=== PATIENT | female | born 1935 | race Caucasian/White ===

== ENCOUNTER 2024-05-26 11:00 | Inpatient (IN) | payer MEDICARE ==
[2024-05-26] MEDS: IV FLUID CONTINUATION 200 ML IV ONE (12:00)
[2024-05-26] MEDS: MIDAZOLAM 2 MG/2 ML VIAL IVP ONE (12:26)
[2024-05-26] MEDS: HEPARIN SODIUM 1,000 UN/ML (10ML VL) IVP ONE (12:31)
[2024-05-26] MEDS: CLOPIDOGREL 75 MG TAB PO ONE (12:39)
[2024-05-26] MEDS: HEPARIN SODIUM,PORCINE 10,000 UNIT in SODIUM CHLORIDE 0.9% 1,000 ML IRRIGATION ONE (12:39)
[2024-05-26] MEDS: HEPARIN SODIUM,PORCINE (1 ML) 2,500 UNIT in SODIUM CHLORIDE 0.9% 250 ML IRRIGATION ONE (12:41)
[2024-05-26] MEDS: diphenhydrAMINE 50 MG/ML 1 ML VIAL IVP ONE (12:53)
[2024-05-26] MEDS: IOPAMIDOL-370 100ML BTL INJ ONE (12:57)
[2024-05-26] MEDS ORDERED: NITROGLYCERIN SL TABS 0.4 MG TAB SUBLINGUAL PRN (12:59)
[2024-05-26] MEDS ORDERED: RX INFO: IV CONTRAST WAS GIVEN 1 EACH MISC MISCELLANE PRN (12:59)
[2024-05-26] MEDS ORDERED: ZOLPIDEM 5 MG TAB PO PRN (12:59)
[2024-05-26] MEDS ORDERED: ATROPINE SULFATE 0.1 MG/ML 10ML SYRINGE IV PRN (12:59)
[2024-05-26] MEDS ORDERED: MAG HYDROX/AL HYDROX/SIMETH 30 ML CUP PO PRN (12:59)
--- NOTE | 2024-05-26 13:04 | P.PCN ---
Date of Procedure: 05/26/24 Operative Findings: PERCUTANEOUS CORONARY INTERVENTION Performing physician Eliel Rodriguez M.D. Procedure Performed: 1. Successful stenting of the mid RCA using 3.5 x 18 mm Xience drug-eluting stent with an excellent angiographic results. 2. Successful stending of the proximal RCA using 3.5 x 15 mm Xience drug-eluting stent with an excellent angiographic result. 3. Adjunctive use of IVUS Indication: Acute non-ST ovation myocardial infarction this 88-year-old female patient who underwent a heart catheterization that revealed severe disease involving the mid RCA Approach: Right radial artery Complications: None Level of Sedation: Moderate with a sedation length of 28 minutes Procedure Discussion: Please refer to diagnostic heart catheterization was performed at [facility]. The patient was brought here for an intervention on the RCA. Anticoagulation was initiated using heparin with continuous ACT monitoring. Subsequently patient was loaded with 600 Plavix at the beginning of the procedure. The RCA was engaged using JR4 guiding catheter and was wired using a whisper wire. I did intravascular ultrasound which showed calcified but not heavily calcified RCA with a diameter around 3.5 mm and predilatation was performed using 2.5 mm balloon before I deployed 3.5 x 18 mm stent in the mid RCA. An angiogram was taken after showed possible edge dissection. I decided to cover that with another stent. I did place in the proximal to mid RCA 3.5 x 15 mm another Xience SHAQUILLE where the stent again was positioned under fluoroscopy guidance and deployed under fluoroscopy guidance. Final angiogram showed excellent angiographic results with no edge dissection but edge stepdown at the distal edge of the stent in the mid RCA. The procedure was completed with no complication Postprocedure Management: 1. Dual antiplatelet therapy and adding oral anticoagulation so the patient will be on triple therapy 2. Aggressive cholesterol control 3. Risk factors modification
[2024-05-26] MEDS: SODIUM CHLORIDE 0.9% 1,000 ML IV ONE (13:11)
[2024-05-26] MEDS: IV FLUID CONTINUATION 1,000 ML IV ONE (13:12)
[2024-05-26] MEDS: ONDANSETRON 4 MG/2 ML VIAL IVP PRN (13:45)
[2024-05-26] MEDS: SODIUM CHLORIDE 0.9% 1,000 ML in EMPTY BAG 1 BAG IV SCH (13:45)
[2024-05-26] MEDS: ATORVASTATIN 80 MG TAB PO SCH (19:39)
[2024-05-26] MEDS ORDERED: ACETAMINOPHEN TAB 325 MG TAB PO PRN (22:59)
[2024-05-27 04:59] VITALS: RESP 18
[2024-05-27 08:19] LABS: African American GFR (CKD) 38 (>60 ml/min/1.73 sqM); Non-African American GFR(CKD) 33 (>60 ml/min/1.73 sqM)
[2024-05-27] MEDS: ASPIRIN 81 MG PO SCH (08:39)
[2024-05-27] MEDS: CLOPIDOGREL 75 MG TAB PO SCH (08:39)
[2024-05-27] MEDS: METOPROLOL TARTRATE 12.5 MG TAB PO SCH (09:57)
--- NOTE | 2024-05-27 12:26 | P.PN ---
Subjective Progress Note Date: 05/27/24 This is an 88-year-old female that initially presented to [facility] for acute NSTEMI. She underwent cardiac catheterization at [facility] that revealed severe disease involving the mid RCA. Patient was then transferred to [facility] and underwent successful stenting of the mid RCA and successful stenting of the proximal RCA. Patient has been started on dual antiplatelet therapy. Patient has had no complications overnight. She denies chest pain at this time. No shortness of breath. Blood pressure 133/73, heart rate 66, pulse ox 97% on 2 L nasal cannula. Creatinine 1.45. Physical examination: Gen: This is an 88-year-old female in no acute distress VS: reviewed HEENT: Head is atraumatic, normocephalic. Pupils equal, round. Sclerae is anicteric. NECK: Supple. No JVD. LUNGS: Clear to auscultation. No wheezes or rhonchi. No intercostal retractions. HEART: Regular rate and rhythm. ABDOMEN: Soft No tenderness. EXTREMITIES: No pedal edema. No calf tenderness. NEUROLOGICAL: Patient is awake, alert and oriented x3. Assessment: NSTEMI Hypertension COPD Remote history of tobacco use Plan: Continue patient on aspirin 81 mg daily and Plavix 75 mg daily Continue atorvastatin, Lopressor. Patient is cleared for discharge from cardiology perspective. Patient to follow-up with Dr. Rodriguez in 1 week. Prescriptions for new cardiac medications have been sent to patient's pharmacy. Nurse practitioner note has been reviewed, I agree with documented findings and plan of care. Patient was seen and examined. Objective - Vital Signs Vital signs: Vital Signs Temp 98.2 F 05/27/24 04:00 Pulse 71 05/27/24 04:00 Resp 18 05/27/24 04:00 BP 145/80 05/27/24 04:00 Pulse Ox 97 05/27/24 08:52 FiO2 Intake & Output 05/26/24 05/27/24 05/27/24 18:59 06:59 18:59 Intake Total 900 120 Balance 900 120 Weight 73.936 kg 74 kg Intake: IV 810 Oral 90 120 Other: Voiding Method Toilet # Voids 1 2 - Labs CBC & Chem 7: 05/27/24 07:15 Labs: Abnormal Lab Results - Last 24 Hours (Table) 05/27/24 Range/Units 07:15 Creatinine 1.45 H (0.52-1.04) mg/dL
[2024-05-27 13:07] VITALS: BP 142/75; PULSE 62; TEMP 97.6
[2024-05-27 13:19] VITALS: BMI 28.0
[2024-05-27 14:05] LABS: Influenza A Not Detected (Not Detectd); Influenza B Not Detected (Not Detectd); RSV Not Detected (Not Detectd)
--- NOTE | 2024-05-29 09:31 | P.HPIM ---
History of Present Illness H&P Date: 05/27/24 This is a pleasant 88-year-old female sent from [facility] for further cardiology evaluation for possible cardiac intervention. Patient evaluated by Dr. Rodriguez and is status post successful stenting of the mid RCA as well as proximal RCA secondary to NSTEMI that initially revealed severe disease in volving the mid RCA. Patient follows with Dr. Shady Byrd which she was not informed he retired in April, so currently has no primary care provider but does have other providers in the clinic she will see. Patient does have past medical history of COPD, hypertension, and was a former smoker. Patient reports she has as needed oxygen at home for her COPD although does not wear it all the time. Patient reports to feeling extremely well and would like to go home if possible although concerned as her daughter and son-in-law live in the home with her were just diagnosed with influenza. Influenza testing was negative for this patient including negative COVID and negative RSV. Patient denies any respiratory symptoms. Patient reports she will be going to stay with a friend for a few days. REVIEW OF SYSTEMS: CONSTITUTIONAL: No fever, no malaise, no fatigue. HEENT: No recent visual problems or hearing problems. Denied any sore throat. CARDIOVASCULAR: No further chest pain, orthopnea, PND, no palpitations, no syncope. PULMONARY: No shortness of breath, no cough, no hemoptysis. GASTROINTESTINAL: No diarrhea, no nausea, no vomiting, no abdominal pain. NEUROLOGICAL: No headaches, no weakness, no numbness. HEMATOLOGICAL: Denies any bleeding or petechiae. GENITOURINARY: Denies any burning micturition, frequency, or urgency. MUSCULOSKELETAL/RHEUMATOLOGICAL: Denies any joint pain, swelling, or any muscle pain. ENDOCRINE: Denies any polyuria or polydipsia. The rest of the 14-point review of systems is negative. PHYSICAL EXAMINATION: GENERAL: The patient is alert and oriented x3, not in any acute distress. Well developed, elderly appearing HEENT: Pupils are round and equally reacting to light. EOMI. No scleral icterus. No conjunctival pallor. Normocephalic, atraumatic. No pharyngeal erythema. No thyromegaly. CARDIOVASCULAR: S1 and S2 present. No murmurs, rubs, or gallops. PULMONARY: Diminished breath sounds bilaterally otherwise chest is clear to auscultation, no wheezing or crackles. ABDOMEN: Soft, nontender, nondistended, normoactive bowel sounds. No palpable organomegaly. MUSCULOSKELETAL: No joint swelling or deformity. EXTREMITIES: No cyanosis, clubbing, or pedal edema. NEUROLOGICAL: Gross neurological examination did not reveal any focal deficits. SKIN: No rashes. Assessment: Chest pain, secondary to NSTEMI status postcardiac catheterization with stenting to the mid as well as proximal RCA History of COPD Chronic hypoxic respiratory failure, uses oxygen as needed due to COPD History of hypertension Former smoker GI prophylaxis DVT prophylaxis Full code Plan: Patient was sent here from [facility] for further cardiac intervention and is status post stenting to the mid and proximal RCA with Dr. Rodriguez cardiology. Patient has been cleared with close outpatient follow-up in the office Patient reports she is fearful of going home as her daughter was just told they have influenza. Cepheid testing including COVID, influenza, RSV were negative for this patient. Patient reports she is arranging to go stay with her friend for a few days Continue current cardiac medications Patient will be discharged home today and instructed to follow-up with primary care provider. She reports her PCP Carson just retired in April although t here are other providers in the clinic she will be seeing The impression and plan of care has been dictated by Anabel Lopez, Nurse Practitioner as directed. Dr. Joey MD I have performed a history and examination and MDM of this patient, discussed the same with the dictator, and agree with the dictator's assessment and plan as written ,documented as a scribe. Based on total visit time, I have performed more than 50% of the visit. Past Medical History Past Medical History: COPD, Hypertension, Myocardial Infarction ([place]) Last Myocardial Infarction Date:: 05/26/2024 History of Any Multi-Drug Resistant Organisms: None Reported Past Surgical History: Adenoidectomy, Heart Catheterization With Stent, Tonsillectomy Past Anesthesia/Blood Transfusion Reactions: No Reported Reaction Date of Last Stent Placement:: 05/26/2024 Smoking Status: Former smoker Medications and Allergies Home Medications Medication Instructions Recorded Confirmed Type Latanoprost [Latanoprost 0.005%] 1 drop BOTH EYES HS 05/26/24 05/26/24 History Magnesium 250 mg PO DAILY 05/26/24 05/26/24 History Montelukast [Singulair] 10 mg PO DAILY 05/26/24 05/26/24 History Mullein Extract 3,000mg 3,000 mg PO DAILY 05/26/24 05/26/24 History Timolol 0.5% Ophth Soln [Timoptic 1 drop BOTH EYES DAILY 05/26/24 05/26/24 History 0.5% Ophth Soln] Acetaminophen Tab [Tylenol] 650 mg PO Q4HR PRN tab 05/27/24 Rx Aspirin 81 mg PO DAILY tab 05/27/24 Rx Atorvastatin [Lipitor] 80 mg PO HS #90 tab 05/27/24 Rx Clopidogrel [Plavix] 75 mg PO DAILY #90 tab 05/27/24 Rx Mag Hydrox/Al Hydrox/Simeth 30 ml PO Q4HR PRN ml 05/27/24 Rx [Maalox] Metoprolol Tartrate [Lopressor] 12.5 mg PO BID #90 tab 05/27/24 Rx Nitroglycerin Sl Tabs [Nitrostat] 0.4 mg SUBLINGUAL Q5M PRN #25 tab 05/27/24 Rx Allergies Allergy/AdvReac Type Severity Reaction Status Date / Time STEROIDS AdvReac Rapid Uncoded 05/26/24 17:30 Heart Rate Physical Exam Vitals: Vital Signs Temp Pulse Pulse Pulse Resp BP Pulse Ox 05/27/24 08:52 97 05/27/24 04:00 98.2 F 71 18 145/80 92 L 05/27/24 00:00 98.2 F 75 19 134/77 94 L 05/26/24 20:00 98.2 F 82 18 159/85 96 05/26/24 18:07 84 16 165/93 91 L 05/26/24 16:44 84 16 172/82 90 L 05/26/24 16:00 72 16 150/71 95 05/26/24 15:44 80 16 156/79 95 05/26/24 14:44 82 16 146/79 95 05/26/24 14:14 82 16 144/77 95 05/26/24 13:44 80 16 133/66 94 L 05/26/24 13:29 72 16 128/67 95 05/26/24 13:14 72 18 117/76 94 L Intake and Output 05/26/24 05/27/24 05/27/24 22:59 06:59 14:59 Intake Total 120 236 Balance 120 236 Intake: IV 0 Oral 120 236 Other: Voiding Method Toilet Toilet # Voids 2 Weight 73.936 kg 74 kg Results CBC & Chem 7: 05/27/24 07:15 Labs: Abnormal Lab Results - Last 24 Hours (Table) 05/27/24 Range/Units 07:15 Creatinine 1.45 H (0.52-1.04) mg/dL Thrombosis Risk Factor Assmnt - Choose All That Apply Each Risk Factor Represents 2 Points: Age 61-74 years Thrombosis Risk Factor Assessment Total Risk Factor Score: 2 Thrombosis Risk Factor Assessment Level: Low Risk
--- NOTE | 2024-05-29 09:33 | P.DS ---
Providers Date of admission: 05/26/24 11:47 Expected date of discharge: 05/27/24 Attending physician: Lisseth Cook Consults: 05/26/24 12:59 Consult Physician Routine Consulting Provider: [facility] Consult Reason/Comments: Post Interventional Patient Do you want consulting provider notified?: Already Contacted Primary care physician: Stated None Hospital Course: Final diagnosis Chest pain, secondary to NSTEMI status postcardiac catheterization with stenting to the mid as well as proximal RCA History of COPD Chronic hypoxic respiratory failure, uses oxygen as needed due to COPD History of hypertension Former smoker GI prophylaxis DVT prophylaxis Full code Discharge disposition Patient is being discharged in a stable condition with guarded prognosis to home . Patient will follow-up with Dr. Mylene Byrd in the outpatient setting upon discharge. Patient is to continue with current cardiac medications and outpatient follow-up with Dr. Rodriguez in the clinic as scheduled. Total time taken is greater than 35 minutes. Hospital course This is a pleasant 88-year-old female sent from [facility] for further cardiology evaluation for possible cardiac intervention. Patient evaluated by Dr. Rodriguez and is status post successful stenting of the mid RCA as well as proximal RCA secondary to NSTEMI that initially revealed severe disease involving the mid RCA. Patient follows with Dr. Shady Byrd which she was not informed he retired in April, so currently has no primary care provider but does have other providers in the clinic she will see. Patient does have past medical history of COPD, hypertension, and was a former smoker. Patient reports she has as needed oxygen at home for her COPD although does not wear it all the time. Patient reports to feeling extremely well and would like to go home if possible although concerned as her daughter and son-in-law live in the home with her were just diagnosed with influenza. Influenza testing was negative for this patient including negative COVID and negative RSV. Patient denies any respiratory symptoms. Patient reports she will be going to stay with a friend for a few days. Patient has been cleared by cardiology and will be discharged today. Guarded prognosis given significant comorbidities and age. PHYSICAL EXAMINATION: GENERAL: The patient is alert and oriented x3, not in any acute distress. Well developed, elderly appearing HEENT: Pupils are round and equally reacting to light. EOMI. No scleral icterus. No conjunctival pallor. Normocephalic, atraumatic. No pharyngeal erythema. No thyromegaly. CARDIOVASCULAR: S1 and S2 present. No murmurs, rubs, or gallops. PULMONARY: Diminished breath sounds bilaterally otherwise chest is clear to auscultation, no wheezing or crackles. ABDOMEN: Soft, nontender, nondistended, normoactive bowel sounds. No palpable organomegaly. MUSCULOSKELETAL: No joint swelling or deformity. EXTREMITIES: No cyanosis, clubbing, or pedal edema. NEUROLOGICAL: Gross neurological examination did not reveal any focal deficits. SKIN: No rashes. Please refer to medication reconciliation sheet for a list of medications. The impression and plan of care has been dictated by Anabel Lopez, Nurse Practitioner as directed. Dr. Joey MD I have performed a history and examination and MDM of this patient, discussed the same with the dictator, and agree with the dictator's assessment and plan as written ,documented as a scribe. Based on total visit time, I have performed more than 50% of the visit. Patient Condition at Discharge: Stable Plan - Discharge Summary New Discharge Prescriptions: New Aspirin 81 mg PO DAILY tab Metoprolol Tartrate [Lopressor] 12.5 mg PO BID #90 tab Nitroglycerin Sl Tabs [Nitrostat] 0.4 mg SUBLINGUAL Q5M PRN #25 tab PRN Reason: Chest Pain Clopidogrel [Plavix] 75 mg PO DAILY #90 tab Mag Hydrox/Al Hydrox/Simeth [Maalox] 30 ml PO Q4HR PRN ml PRN Reason: Heartburn Acetaminophen Tab [Tylenol] 650 mg PO Q4HR PRN tab PRN Reason: Fever And/ Or Pain Atorvastatin [Lipitor] 80 mg PO HS #90 tab Continue Magnesium 250 mg PO DAILY Timolol 0.5% Ophth Soln [Timoptic 0.5% Ophth Soln] 1 drop BOTH EYES DAILY Montelukast [Singulair] 10 mg PO DAILY Latanoprost [Latanoprost 0.005%] 1 drop BOTH EYES HS Mullein Extract 3,000mg 3,000 mg PO DAILY Discontinued lisinopriL 40 mg PO DAILY Furosemide [Lasix] 20 mg PO DAILY Atorvastatin [Lipitor] 40 mg PO DAILY Potassium Chloride ER [K-Dur 10] 10 meq PO DAILY Discharge Medication List Latanoprost [Latanoprost 0.005%] 1 drop BOTH EYES HS 05/26/24 [History] Magnesium 250 mg PO DAILY 05/26/24 [History] Montelukast [Singulair] 10 mg PO DAILY 05/26/24 [History] Mullein Extract 3,000mg 3,000 mg PO DAILY 05/26/24 [History] Timolol 0.5% Ophth Soln [Timoptic 0.5% Ophth Soln] 1 drop BOTH EYES DAILY 05/26/24 [History] Acetaminophen Tab [Tylenol] 650 mg PO Q4HR PRN tab 05/27/24 [Rx] Aspirin 81 mg PO DAILY tab 05/27/24 [Rx] Atorvastatin [Lipitor] 80 mg PO HS #90 tab 05/27/24 [Rx] Clopidogrel [Plavix] 75 mg PO DAILY #90 tab 05/27/24 [Rx] Mag Hydrox/Al Hydrox/Simeth [Maalox] 30 ml PO Q4HR PRN ml 05/27/24 [Rx] Metoprolol Tartrate [Lopressor] 12.5 mg PO BID #90 tab 05/27/24 [Rx] Nitroglycerin Sl Tabs [Nitrostat] 0.4 mg SUBLINGUAL Q5M PRN #25 tab 05/27/24 [Rx] Follow up Appointment(s)/Referral(s): Eliel Rodriguez MD [STAFF PHYSICIAN] - 1 Week (please call to schedule your appt ) Shady Byrd MD [REFERRING] - 1 Week (please call to schedule your appt ) Patient Instructions/Handouts: Heart Catheterization (DC) Activity/Diet/Wound Care/Special Instructions: Activity limited until follow-up Follow-up with primary care provider on discharge Follow-up with cardiology in [address] Rodriguez Continue current medications as prescribed Continue holding Lasix until follow-up with cardiology Continue heart healthy diet Discharge/Stand Alone Forms: Who Do I Call?, Community Resources, Personal Offal Worker, Area PCPs Discharge Disposition: HOME SELF-CARE
== END 2024-05-27 16:39 | disposition home or self-care (01) | DRG 322 ==
LOC: 3SCARD 11:47
PROVIDERS: ADMIT Internal Medicine; ATTEND Internal Medicine
PROC: 027035Z Dilation of Coronary Artery, One Artery with Two Drug-eluting Intraluminal Devices, Percutaneous Approach (ICD-10-PCS; principal; 2024-05-26 11:00)
PROC: B240ZZ3 Ultrasonography of Single Coronary Artery, Intravascular (ICD-10-PCS; 2024-05-26 11:00)
DX: I21.4 Non-ST elevation (NSTEMI) myocardial infarction (principal); J96.11 Chronic respiratory failure with hypoxia; Z99.81 Dependence on supplemental oxygen; J44.9 Chronic obstructive pulmonary disease, unspecified; I10 Essential (primary) hypertension; I25.84 Coronary atherosclerosis due to calcified coronary lesion; I25.10 Atherosclerotic heart disease of native coronary artery without angina pectoris; Z87.891 Personal history of nicotine dependence; Z79.899 Other long term (current) drug therapy; Z79.02 Long term (current) use of antithrombotics/antiplatelets; Z79.82 Long term (current) use of aspirin
CPT/HCPCS: 82565; 87636; 92978; 94760